=== PATIENT | male | born 1995 | race Caucasian/White ===

== ENCOUNTER 2018-12-15 04:24 | Emergency (ER) | payer OTHER ==
[~2018-12-15] VITALS: Ht 182.9 cm; Wt 88.5 kg
== END 2018-12-15 05:18 | disposition home or self-care (01) ==
LOC: ER 04:24
DX: S60.311A Abrasion of right thumb, initial encounter (principal); Z87.891 Personal history of nicotine dependence; W31.9XXA Contact with unspecified machinery, initial encounter
CPT/HCPCS: 99283